=== PATIENT | male | born 1970 | race American Indian/Alaskan Native ===

== ENCOUNTER 2018-11-12 17:26 | Emergency (ER) | payer BC, OTHER ==
[2018-11-12 17:32] VITALS: BP 178/88
[2018-11-12] MEDS ORDERED: Ibuprofen 600 MG Tab PO ONE (18:27)
--- NOTE | 2018-11-12 18:39 | EDM.PDOC ---
<Hasmukh Stewart M - Last Filed: 11/12/18 18:33> ED HPI GENERAL MEDICAL PROBLEM - General Chief Complaint: Fever Stated Complaint: NOT FEELING VERY GOOD Time Seen by Provider: 11/12/18 18:30 Source of Information: Reports: Patient History Limitations: Reports: No Limitations - History of Present Illness INITIAL COMMENTS - FREE TEXT/NARRATIVE: This 48 yo male patient reports to the ED due to not feeling well. 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 The patient reports a patient he was transporting was coughing on him. The patient reports he started feeling lightheaded and feverish. The patient reports he took a nap, but still does not feel well. Onset: Today Duration: Constant Location: Reports: Other Quality: Reports: Other Severity: Mild Improves with: Reports: None Worsens with: Reports: None Context: Reports: Other Associated Symptoms: Reports: No Other Symptoms - Related Data Allergies Allergy/AdvReac Type Severity Reaction Status Date / Time Penicillins Allergy Facial Verified 11/12/18 17:32 Swelling Home Meds: Home Meds Aspirin [Halfprin] 81 mg PO DAILY 03/17/14 [History] Ferrous Gluconate 325 mg PO BID 03/17/14 [History] Furosemide [Lasix] 20 mg PO DAILY 03/17/14 [History] Hydrochlorothiazide/Lisinopril [Lisinopril-HCTZ 20-25 MG] 1 tab PO DAILY [History] Simvastatin [Zocor] 40 mg PO BEDTIME 03/17/14 [History] metFORMIN [metFORMIN XR] 500 mg PO BIDM 03/17/14 [History] Past Medical History Cardiovascular History: Reports: High Cholesterol, Hypertension Endocrine/Metabolic History: Reports: Diabetes, Type II, Obesity/BMI 30+ Social & Family History - Tobacco Use Smoking Status *Q: Never Smoker Second Hand Smoke Exposure: Yes - Recreational Drug Use Recreational Drug Use: No - Living Situation & Occupation Living situation: Reports: with Family ED ROS GENERAL - Review of Systems Review Of Systems: ROS reveals no pertinent complaints other than HPI. ED EXAM, GENERAL - Physical Exam Exam: See Below Exam Limited By: No Limitations General Appearance: Alert, WD/WN, Mild Distress, Obese Eye Exam: Bilateral Eye: EOMI, Normal Inspection, PERRL Ears: Normal External Exam, Normal Canal, Hearing Grossly Normal, Normal TMs Nose: Normal Inspection, Normal Mucosa, No Blood Throat/Mouth: Normal Inspection, Normal Lips, Normal Teeth, Normal Gums, Normal Oropharynx, Normal Voice, No Airway Compromise Head: Atraumatic, Normocephalic Neck: Normal Inspection, Supple, Non-Tender, Full Range of Motion Respiratory/Chest: No Respiratory Distress, Lungs Clear, Normal Breath Sounds, No Accessory Muscle Use, Chest Non-Tender Cardiovascular: Normal Peripheral Pulses, Regular Rate, Rhythm, No Edema, No Gallop, No JVD, No Murmur, No Rub GI/Abdominal: Normal Bowel Sounds, Soft, Non-Tender, No Organomegaly, No Distention, No Abnormal Bruit, No Mass (Male) Exam: Deferred Rectal (Males) Exam: Deferred Back Exam: Normal Inspection, Full Range of Motion, NT Extremities: Normal Inspection, Normal Range of Motion, Non-Tender, Normal Capillary Refill, No Pedal Edema Neurological: Alert, Oriented, CN II-XII Intact, Normal Cognition, Normal Gait, Normal Reflexes, No Motor/Sensory Deficits Psychiatric: Normal Affect, Normal Mood Skin Exam: Warm, Dry, Intact, Normal Color, No Rash Lymphatic: No Adenopathy Course - Vital Signs Last Recorded V/S: Last Vital Signs Temp 38.7 C H 11/12/18 18:32 Pulse 112 H 11/12/18 17:29 Resp 18 11/12/18 17:29 BP 178/88 H 11/12/18 17:29 Pulse Ox 97 11/12/18 17:29 - Orders/Labs/Meds Orders: Active Orders 24 hr Category Date Time Status CULTURE STREP A CONFIRMATION [] Stat Lab 11/12/18 18:21 Results STREP SCRN A RAPID W CULT CONF [] Stat Lab 11/12/18 18:21 Results Labs: Laboratory Tests 11/12/18 11/12/18 Range/Units 18:42 18:42 WBC 14.3 H (5.0-10.0) 10^3/uL RBC 5.90 (4.6-6.2) 10^6/uL Hgb 15.3 D (14.0-18.0) g/dL Hct 47.1 (40.0-54.0) % MCV 79.8 L (80-100) fL MCH 25.9 L (27.0-34.0) pg MCHC 32.5 L (33.0-35.0) g/dL Plt Count 278 (150-450) 10^3/uL Neut % (Auto) 89.5 H (42.2-75.2) % Lymph % (Auto) 6.4 L (20.5-50.1) % Morrill % (Auto) 3.0 (2-8) % Eos % (Auto) 1.0 (1.0-3.0) % Baso % (Auto) 0.1 (0.0-1.0) % Sodium 133 L (135-145) mmol/L Potassium 3.8 (3.6-5.0) mmol/L Chloride 99 L (101-111) mmol/L Carbon Dioxide 22.0 (21.0-31.0) mmol/L Anion Gap 15.8 BUN 11 (7-18) mg/dL Creatinine 0.7 (0.6-1.3) mg/dL Est Cr Clr Drug Dosing 127.57 mL/min Estimated GFR (MDRD) > 60 BUN/Creatinine Ratio 15.71 Glucose 137 H (74-105) mg/dL Calcium 8.2 L (8.4-10.2) mg/dl Total Bilirubin 1.0 (0.2-1.0) mg/dL AST 32 (10-42) IU/L ALT 36 (10-60) IU/L Alkaline Phosphatase 103 (42-121) IU/L Total Protein 7.9 (6.7-8.2) g/dl Albumin 2.9 L (3.2-5.5) g/dl Globulin 5.0 Albumin/Globulin Ratio 0.58 Meds: Medications Discontinued Medications Generic Name Dose Route Start Last Admin Trade Name Blairq PRN Reason Stop Dose Admin Ibuprofen 600 mg 11/12/18 18:27 11/12/18 18:32 Motrin PO 11/12/18 18:28 600 mg ONETIME ONE Administration Departure - Departure Disposition: Home, Self-Care 01 Clinical Impression: Flu syndrome - Discharge Information Instructions: Fever, Adult, [id number] Forms: ED Department Discharge Additional Instructions: 1) rest and sleep as much as possible 2) drink lots of liquids 3) recheck as needed <Tonny De La Torre - Last Filed: 11/12/18 19:14> Course - Re-Assessments/Exams Free Text/Narrative Re-Assessment/Exam: 11/12/18 19:13 results discussed with pt who is feeling fine now after resting here. Departure - Departure Time of Disposition: 19:14 Condition: Good
[2018-11-12 19:08] LABS: ANION GAP 15.8; CHLORIDE,CL 99 mmol/L (101-111); SODIUM,NA 133 mmol/L (135-145)
== END 2018-11-12 19:20 | disposition home or self-care (01) ==
LOC: DL.ED 17:26
DX: J11.1 Influenza due to unidentified influenza virus with other respiratory manifestations (principal); E11.9 Type 2 diabetes mellitus without complications; I10 Essential (primary) hypertension; E78.00 Pure hypercholesterolemia, unspecified; Z79.84 Long term (current) use of oral hypoglycemic drugs; Z88.0 Allergy status to penicillin; Z79.82 Long term (current) use of aspirin; Z79.899 Other long term (current) drug therapy
CPT/HCPCS: 36415; 80053; 85025; 87081; 87430; 87804; 99283; A9270

== ENCOUNTER 2023-05-16 05:58 | Day surgery (SDC) | payer BC, OTHER ==
[2023-05-16] MEDS ORDERED: Midazolam 1 MG/ML 2 ML SDV ONE (06:13)
[2023-05-16] MEDS ORDERED: fentaNYL 100 MCG/2 ML SDV ONE (06:14)
[2023-05-16] MEDS ORDERED: fentaNYL 100 MCG/2 ML SDV IV ONE ×2 (06:59→07:00)
[2023-05-16] MEDS ORDERED: Midazolam 1 MG/ML 2 ML SDV IV ONE ×6 (07:00→07:14)
[2023-05-16] MEDS ORDERED: Dextrose 5%-0.45% NaCl 1,000 ML IV SCH (07:30)
[2023-05-16 13:29] VITALS: BP 160/72; PULSE 74
== END 2023-05-16 09:10 | disposition home or self-care (01) ==
LOC: DL.ENDO 05:58
PROVIDERS: ATTEND Internal Medicine Gastroenterology
DX: K63.5 Polyp of colon (principal); E11.9 Type 2 diabetes mellitus without complications; E78.5 Hyperlipidemia, unspecified; G47.30 Sleep apnea, unspecified; N52.9 Male erectile dysfunction, unspecified; E66.01 Morbid (severe) obesity due to excess calories; Z88.0 Allergy status to penicillin; Z68.44 Body mass index [BMI] 60.0-69.9, adult
CPT/HCPCS: J2250; J3010; J7042